=== PATIENT | female | born 1990 | race Caucasian/White ===

== ENCOUNTER 2022-12-11 07:21 | Emergency (ER) | payer MEDICAID ==
[~2022-12-11] VITALS: Ht 157.5 cm; Wt 50.0 kg
[2022-12-11] MEDS ORDERED: morphine 4 MG/ML inj SYRINge IV ONE (08:10)
[2022-12-11] MEDS ORDERED: normal saline 1000ML IV soln IVB ONE (08:10)
[2022-12-11] MEDS ORDERED: ondansetron/PF 4mg/2ml inj IV ONE (08:10)
[2022-12-11 08:27] LABS: URINE HCG NEGATIVE (NEG)
[2022-12-11 08:33] LABS: BASOPHILS # (AUTO) 0.1 X10'3 (0-0.2); BASOPHILS % (AUTO) 0.4 % (0-1); EOSINOPHILS % (AUTO) 0.3 % (0-6); LYMPHOCYTES % (AUTO) 6.5 % (21-51); MONOCYTES # (AUTO) 0.7 X10'3 (0-0.9); MONOCYTES % (AUTO) 4.6 % (2-12); NEUTROPHILS # (AUTO) 13.2 X10'3 (1.8-7.7); NEUTROPHILS % (AUTO) 88.2 % (42-75); PLATELET COUNT 310 X10'3 (140-440)
[2022-12-11 08:43] LABS: HEMATOCRIT 31.4 % (35.0-45.0); HEMOGLOBIN 10.3 g/dl (12.0-16.0); MEAN CORPUSCULAR HEMOGLOBIN 22.6 PG (27.0-31.0); MEAN CORPUSCULAR HGB CONC 32.8 g/dL (33.0-36.5); RED BLOOD COUNT 4.55 X10'6 (4.20-5.60); RED CELL DISTRIBUTION WIDTH 18.7 % (11.5-14.5)
[2022-12-11 08:46] LABS: ALANINE AMINOTRANSFERASE 42 U/L (12-78); ALBUMIN/GLOBULIN RATIO 1.1 (1.1-1.5); ALKALINE PHOSPHATASE 66 IU/L (46-116); ANION GAP 12 (8-16); ASPARTATE AMINO TRANSFERASE 22 U/L (10-37); BILIRUBIN,TOTAL 0.8 MG/DL (0.1-1.0); BLOOD UREA NITROGEN 14 MG/DL (7-18); BUN/CREATININE RATIO 16.5 (10.0-20.0); CALCIUM 9.1 MG/DL (8.5-10.1); CHLORIDE 104 MMOL/L (99-107); CREATININE 0.85 MG/DL (0.40-0.90); GLUCOSE 167 MG/DL (70-104); LIPASE 56 U/L (73-393); POTASSIUM 3.5 MMOL/L (3.5-5.1); SODIUM 138 MMOL/L (135-145); TOTAL CARBON DIOXIDE 22.2 MMOL/L (24-32); TOTAL PROTEIN 7.6 G/DL (6.4-8.2); eGFR 78 ML/MIN
[2022-12-11 09:02] LABS: ANISOCYTOSIS 2+; MICROCYTOSIS 1+; PLATELET ESTIMATE NORMAL; SCHISTOCYTES FEW
[2022-12-11 09:05] LABS: BURR CELLS FEW; ELLIPTOCYTES FEW
[2022-12-11 09:16] LABS: CLARITY,URINE CLOUDY (Clear); COLOR,URINE YELLOW (Yellow); GLUCOSE, URINE NEGATIVE (Neg); KETONES,URINE >=80 mg/dl (Neg); LEUKOCYTE ESTERASE ,URINE NEGATIVE (Neg); NITRITES, URINE NEGATIVE (Neg); OCCULT BLOOD,URINE LARGE (Neg); PROTEIN,URINE 30 mg/dl (Neg); UA COLLECTION TYPE CLN CATCH MIDSTREAM; UROBILINOGEN,URINE 0.2 E.U/dL (0.2-1.0)
[2022-12-11] MEDS ORDERED: acetaminophen 325mg tablet PO ONE (09:20)
[2022-12-11] MEDS ORDERED: ketorolac trometh. 30mg/ml inj. IV ONE (09:20)
[2022-12-11 09:21] LABS: MUCUS STRANDS MANY /LPF (Neg); SQUAMOUS EPITHELIAL CELL,UR MODERATE /LPF (FEW)
[2022-12-11 09:22] LABS: CAL OXALATE CRYSTALS 1+ /HPF (NEGATIVE)
[2022-12-11 09:23] LABS: BACTERIA,URINE 1+ /HPF (Neg); RBC,URINE TNTC /HPF (0-2)
--- NOTE | 2022-12-11 10:24 | NUR ---
pending urology consultation at this time
[2022-12-11] MEDS ORDERED: FLO0.4C PO (10:30)
[2022-12-11] MEDS ORDERED: IBUP-1984 PO (10:30)
[2022-12-11] MEDS ORDERED: HYDR-3965 PO (10:30)
[2022-12-11] MEDS ORDERED: ONDA4TAB12 PO (10:30)
[2022-12-11] MEDS ORDERED: CEPH-585 PO (10:30)
[2022-12-11 11:12] VITALS: BP 109/69
== END 2022-12-11 11:14 | disposition home or self-care (01) ==
LOC: ER 07:23
DX: N23 Unspecified renal colic (principal); Z98.890 Other specified postprocedural states
CPT/HCPCS: 36415; 74176; 80053; 81001; 81025; 83690; 85008; 85025; 87088; 96374; 96375; 99285; J1885; J2270; J2405; J7030